=== PATIENT | female | born 1945 | race Caucasian/White ===

== ENCOUNTER 2024-07-08 11:49 | Day surgery (SDC) | payer MEDICARE ==
[2024-07-08] MEDS ORDERED: Xylocaine-Mpf 2% 5 Ml Vial IJ ONE (11:50)
[2024-07-08] MEDS ORDERED: DIPRIVAN 200 MG/20 ML IV ONE (13:42)
--- NOTE | 2024-07-08 14:52 | XRAY ---
Indication: Bilateral L4-S1 MBB. Intraoperative fluoroscopy provided for 17 seconds. Single digital spot images submitted for interpretation demonstrates posterior needle tips projecting over expected left and right L4-S1 nerve roots. Correlate with intraoperative findings/report.
--- NOTE | 2024-07-08 15:02 | XRAY ---
17 seconds of fluoroscopy was used in surgery for a bilateral L4-S1 MBB.
== END 2024-07-08 14:10 | disposition home or self-care (01) ==
LOC: SDC-PAIN 11:49
PROVIDERS: ATTEND Psychiatry & Neurology Pain Medicine
DX: M47.816 Spondylosis without myelopathy or radiculopathy, lumbar region (principal)
CPT/HCPCS: 64493; 64494; 72020; 77002; J2704

== ENCOUNTER 2024-09-16 09:42 | Day surgery (SDC) | payer MEDICARE ==
[2024-09-16] MEDS ORDERED: BUPIVACAINE 0.5% VIAL IJ ONE (09:43)
[2024-09-16] MEDS ORDERED: propofoL IV ONE (11:41)
--- NOTE | 2024-09-16 13:38 | XRAY ---
Indication: Bilateral L4-S1 MBB. Intraoperative fluoroscopy provided for 14 seconds. Single digital spot image submitted for interpretation demonstrates posterior needle tips projecting over expected left and right L4-S1 nerve roots. Correlate with intraoperative findings/report.
--- NOTE | 2024-09-16 14:04 | XRAY ---
14 seconds of fluoroscopy was used in surgery for a bilateral L4-S1 MBB.
== END 2024-09-16 12:15 | disposition home or self-care (01) ==
LOC: SDC-PAIN 09:42
PROVIDERS: ATTEND Psychiatry & Neurology Pain Medicine
DX: M47.816 Spondylosis without myelopathy or radiculopathy, lumbar region (principal); E11.9 Type 2 diabetes mellitus without complications
CPT/HCPCS: 64493; 64494; 72020; 77002; J2704

== ENCOUNTER 2024-10-20 09:53 | Day surgery (SDC) | payer MEDICARE ==
[2024-10-20] MEDS ORDERED: methylPREDNISolone acetate IM ONE (09:54)
[2024-10-20] MEDS ORDERED: LIDOCAINE HCL 1% 50 MG/5 ML VL IJ ONE (09:54)
[2024-10-20] MEDS ORDERED: BUPIVACAINE 0.5% VIAL IJ ONE (09:54)
[2024-10-20] MEDS ORDERED: Lactated Ringers 500 ML IV ONE (10:39)
[2024-10-20] MEDS ORDERED: propofoL IV ONE (11:56)
--- NOTE | 2024-10-20 13:01 | XRAY ---
Indication: Right L4-S1 RFA. Intraoperative fluoroscopy provided for 27 seconds. 3 digital spot image submitted for interpretation demonstrates posterior needle tips projecting over expected right L4-S1 nerve roots. Correlate with intraoperative findings/report.
--- NOTE | 2024-10-20 14:07 | XRAY ---
27 seconds of fluoroscopy was used in surgery for a right L4-S1 RFA.
== END 2024-10-20 12:31 | disposition home or self-care (01) ==
LOC: SDC-PAIN 09:53
PROVIDERS: ATTEND Psychiatry & Neurology Pain Medicine
DX: M47.816 Spondylosis without myelopathy or radiculopathy, lumbar region (principal)
CPT/HCPCS: 64635; 64636; 72100; 77002; 99100; J1010; J2704

== ENCOUNTER 2024-11-04 10:31 | Day surgery (SDC) | payer MEDICARE ==
[2024-11-04] MEDS ORDERED: LIDOCAINE HCL 1% 50 MG/5 ML VL IJ ONE (10:32)
[2024-11-04] MEDS ORDERED: methylPREDNISolone acetate IM ONE (10:32)
[2024-11-04] MEDS ORDERED: BUPIVACAINE 0.5% VIAL IJ ONE (10:32)
[2024-11-04] MEDS ORDERED: Lactated Ringers 500 ML IV ONE (11:45)
[2024-11-04] MEDS ORDERED: propofoL IV ONE (13:00)
--- NOTE | 2024-11-04 14:20 | XRAY ---
Indication: Left L4-S1 RFA. Intraoperative fluoroscopy provided for 22 seconds. 3 digital spot images submitted for interpretation demonstrates posterior needle tips projecting over expected left L4-S1 nerve roots. Correlate with intraoperative findings/report.
--- NOTE | 2024-11-04 14:52 | XRAY ---
22 seconds of fluoroscopy was used in surgery for a left L4-S1 RFA.
[2024-11-04] MEDS ORDERED: Lactated Ringers 1,000 ML IV ONE (16:54)
== END 2024-11-04 13:45 | disposition home or self-care (01) ==
LOC: SDC-PAIN 10:31
PROVIDERS: ATTEND Psychiatry & Neurology Pain Medicine
DX: M47.817 Spondylosis without myelopathy or radiculopathy, lumbosacral region (principal)
CPT/HCPCS: 64635; 64636; 72100; 77002; 99100; J1010; J2704